=== PATIENT | female | born 1930 | race Caucasian/White ===

== ENCOUNTER 2019-06-12 13:37 | Emergency (ER) | payer OTHER ==
[~2019-06-12] VITALS: Ht 162.6 cm; Wt 46.3 kg
[~2019-06-12 13:37] MED LIST: ASPI-605 PO
--- NOTE | 2019-06-12 13:41 | NUR ---
BIBRA FROM HOME, C/O L HIP PAIN. S/P [facility] 15MIN REHABILITATION SPECIALIST. +LLE SHORTENING NOTED. +SWELLING LLE NOTED. TO ER BED 8, HOOKED TO MONITOR, CHANGED TO HOSP GOWN, PROVIDED W WARM BLANKET, AWAITING MD TREJO.
[2019-06-12 15:00] LABS: BASOPHILS # (AUTO) 0.1 /CMM (0.0-0.2); BASOPHILS % (AUTO) 0.9 % (0.0-2.0); EOSINOPHILS % (AUTO) 0.8 % (0.0-6.0); HEMATOCRIT 41 % (33-45); LYMPHOCYTES % (AUTO) 10.6 % (20.0-44.0); MEAN CORPUSCULAR HGB CONC 32 g/dl (31.0-36.0); MEAN CORPUSCULAR VOLUME 94 fL (82-100); MONOCYTES # (AUTO) 0.6 /CMM (0.1-1.30); MONOCYTES % (AUTO) 6.4 % (2.0-12.0); NEUTROPHILS # (AUTO) 7.9 /CMM (1.8-8.9); NEUTROPHILS % (AUTO) 81.3 % (43.0-81.0); PLATELET COUNT (AUTO) 341 /CMM (150-450); RED BLOOD CELL COUNT(AUTO) 4.31 MIL/uL (4.0-5.2); WHITE BLOOD COUNT (AUTO) 9.7 K/uL (4.3-11.0)
[2019-06-12] MEDS ORDERED: MORPHINE SULFATE INJ 2 MG/ML DISP.SYRIN IV ONE ×2 (15:00→22:30)
[2019-06-12] MEDS ORDERED: ONDANSETRON HCL/PF - ER 4 MG/2 ML VIAL IV ONE (15:00)
[2019-06-12 15:07] LABS: CALCIUM, SERUM 9.1 mg/dL (8.5-10.1); CREATININE 1.2 mg/dL (0.6-1.3); POTASSIUM 4.5 mmol/L (3.5-5.1)
--- NOTE | 2019-06-12 15:12 | NUR ---
PATIENT IN BED, AWAKE, HOOKED TO MONITOR, WILL CONTINUE TO MONITOPR ACCORDINGLY
[2019-06-12] MEDS ORDERED: ONDANSETRON HCL/PF 4 MG/2 ML VIAL ONE (16:10)
[2019-06-12] MEDS ORDERED: MORPHINE SULFATE INJ 4 MG/ML DISP.SYRIN ONE ×2 (16:10→22:15)
--- NOTE | 2019-06-12 16:21 | NUR ---
STEPHEN PAGED FOR CONSULT. WAITING FOR CALL BACK FROM DR. BEY
--- NOTE | 2019-06-12 17:10 | NUR ---
Abigail sorensen in ED - 06/12/19 at 1725 by [facility] PER RADIOLOGY DEPT, CT SCAN NOT WORKING (NOT SHOWING IMAGES), RADIOLOGY DEPT ALREADY CONTACTED [employer].
--- NOTE | 2019-06-12 17:28 | NUR ---
pt will be transferred to [place]. Waiting on transfer info (will call around 1830 with transfer info). Called Dr Stone to tell pt will be transferred.
--- NOTE | 2019-06-12 17:33 | NUR ---
noble Stone waiting for call back to notify that pt will will be transferred
--- NOTE | 2019-06-12 19:00 | NUR ---
admitting calling CM for updated transfer info
--- NOTE | 2019-06-12 19:20 | NUR ---
PT RECEIVED FROM EDILBERTO BAZZI FOR NIKKI
--- NOTE | 2019-06-12 19:25 | NUR ---
REPORT GIVEN TO KAYODE CASANOVA FOR [facility]
--- NOTE | 2019-06-12 20:04 | NUR ---
PER SEAN FROM [facility] IS WAITING FOR BED ASSIGNMENT. TRANSFER INFO TO FOLLOW. SEAN'S # IS [phone]. ACCEPTING DR IS DR PEDRAZA
--- NOTE | 2019-06-12 21:33 | NUR ---
CALLED TO FOLLOW UP WITH TRANSFER, WILL CALL BACK WITH BED INFORMATION.
--- NOTE | 2019-06-12 21:33 | NUR ---
pt in bed resting. [id number]. nad noted
--- NOTE | 2019-06-12 21:40 | NUR ---
TRANSFER INFO: PT WILL BE TRANSFERRED TO [facility] PER INSURANCE REQUEST ACCEPTING MD: DR. PEDRAZA NUMBER FOR REPORT: [phone] NURSE FOR REPORT: MATT[facility]
[2019-06-12 22:10] VITALS: BP 147/71
--- NOTE | 2019-06-12 22:12 | NUR ---
REPORT GIVEN TO EDILBERTO GUTIERREZ AT [facility] FOR [facility]. WELL REPORT TO DWAIN
--- NOTE | 2019-06-12 22:35 | NUR ---
PT LEFT TO [facility]
== END 2019-06-12 22:35 ==
LOC: ER 13:42
DX: S72.142A Displaced intertrochanteric fracture of left femur, initial encounter for closed fracture (principal); I10 Essential (primary) hypertension; Z95.818 Presence of other cardiac implants and grafts; Z60.2 Problems related to living alone; Z79.82 Long term (current) use of aspirin; Z96.641 Presence of right artificial hip joint; W01.0XXA Fall on same level from slipping, tripping and stumbling without subsequent striking against object, initial encounter; Y93.89 Activity, other specified; Y92.89 Other specified places as the place of occurrence of the external cause; Y99.8 Other external cause status
CPT/HCPCS: 36415; 51702; 71045; 73503; 80048; 85025; 85730; 96374; 96375; 96376; 99285; J2270 ×2; J2405; 73502